=== PATIENT | male | born 1975 | race Caucasian/White ===

== ENCOUNTER 2020-02-18 16:21 | Emergency (ER) | payer SELFPAY ==
[2020-02-18 16:36] VITALS: BP 130/84; PULSE 90; RESP 18; TEMP 37.4; O2SAT 100
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
== END 2020-02-18 17:11 | disposition home or self-care (01) ==
PROVIDERS: Emergency Provider Nurse Practitioner
DX: L30.9 Dermatitis, unspecified (principal); L02.811 Cutaneous abscess of head [any part, except face]; F17.290 Nicotine dependence, other tobacco product, uncomplicated; F41.9 Anxiety disorder, unspecified
CPT/HCPCS: 99213; G0463

== ENCOUNTER 2021-03-19 22:50 | Emergency (ER) | payer BC, SELFPAY ==
--- NOTE | ~2021-03-19 | XR_ITS ---
EXAMINATION: XR wrist LT min 3V DATE: 03/20/2021 00:26 INDICATION: Feels pins sticking out from prior surgery TECHNIQUE: Posteroanterior, ulnar deviation, oblique, and lateral views of the left wrist were obtain ed. COMPARISON: none FINDINGS: Alignment is normal. No acute fracture. Old healed distal left ulnar diaphyseal fracture with interfr agmentary screw and plate and screw fixation. The screws associated with the plate and screw fixation projects slightly beyond the cortical margin of the ulna. The central screw projects up to 5 mm beyo nd the cortical margin and the 3 most distal screws each extend to within 5 mm of the skin surface. J oint spaces are unremarkable. IMPRESSION: 1. Internal fixation along an old healed distal left ulnar diaphyseal fracture which is in near-anato arsen alignment. A few of the screws project beyond the peripheral margin of the ulnar cortex tooth and 5 mm of the skin surface and likely account for the provided indication. Reviewed, dictated and finalized at location [facility] IMPRESSION: 1. Internal fixation along an old healed distal left ulnar diaphyseal fracture which is in near-anatomic alignment. A few of the screws project beyond the per ipheral margin of the ulnar cortex tooth and 5 mm of the skin surface and likel y account for the provided indication.
[2021-03-19 23:09] VITALS: BP 123/77; PULSE 78; RESP 18; TEMP 36.6; O2SAT 97
[2021-03-20] MEDS: HYDROcodone/acetaminophen (*CRX) 5-325 MG TABLET 1 TAB PO (00:15)
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
[2021-03-20 01:36] VITALS: BP 140/74; PULSE 77; RESP 16; O2SAT 99
== END 2021-03-20 01:36 | disposition home or self-care (01) ==
PROVIDERS: Emergency Provider Emergency Medicine
DX: M25.532 Pain in left wrist (principal); F17.290 Nicotine dependence, other tobacco product, uncomplicated
CPT/HCPCS: 73110; 99283; A9270

== ENCOUNTER 2021-09-01 18:44 | Emergency (ER) | payer BC, SELFPAY ==
[2021-09-01] VITALS (8 sets, daily range): BP systolic 119–138; BP diastolic 82–93; PULSE 75–91; RESP 13–22; TEMP 36.4; O2SAT 97–100
--- NOTE | ~2021-09-01 | XR_ITS ---
EXAMINATION: XR chest 2V Exam Date/Time: 09/01/2021 19:00 CDT CLINICAL HISTORY: dyspnea X 4 DAYS Comparison: None available. RESULT: Lines, tubes, and devices: None. Lungs and pleura: Clear. Cardiomediastinal silhouette: Normal cardiomediastinal silhouette. Other: No acute osseous or upper abdominal finding. IMPRESSION: No acute cardiopulmonary process Reviewed, dictated and finalized at location K.
--- NOTE | 2021-09-01 21:28 | ED.URI ---
HPI - URI/Sore Throat General Chief Complaint: Shortness of Breath/Dyspnea Stated Complaint: cant breathe Time Seen by Provider: 09/01/21 21:10 History of Present Illness HPI Narrative: 45-year-old male who is not vaccinated for COVID presents with loss of taste and appetite for the last 3 days, cough, fatigue. Related Data Allergies Allergy/AdvReac Type Severity Reaction Status Date / Time Penicillins Allergy Severe Anaphylaxis Verified 09/01/21 18:56 bee venom protein (honey bee) AdvReac Hives Verified 09/01/21 18:56 [bees] Review of Systems Review of Systems: CONST: Chills HEENT: sore throat C/V: No chest pain RESP: cough GI: Loss of appetite : No dysuria. M/S: Muscle aches. SKIN: No rash. NEURO: Headache PSYCH: [No depression] [facility] Past Medical History Medical History Alcohol abuse Anxiety Critical polytrauma Family History Family History Father Acute quadriplegic myopathy Social History Social History Smoking status: Current some day smoker Tobacco type: cigars Alcohol intake: former Gender identity (if verbalized by the patient): Male Exam Narrative: EXAMINATION OF ORGAN SYSTEMS/BODY AREAS: Constitutional: Vital signs per nursing GENERAL:[No acute distress, non-toxic appearing.] HEAD: Normal with no signs of head trauma. EYES: EOMI, conjunctiva normal ENT: Hearing grossly intact LUNGS: Nonlabored breathing. HEART: [Regular rate and rhythm] ABD: [Soft], [nontender to palpation] EXT: Normal range of motion SKIN: [No rashes or lesions.] NEURO: [Alert and oriented x 3. No gross focal sensory or strength deficits.] PSYCH: Normal affect Course Course Emergency Course: 45-year-old male presenting with COVID symptoms, vital signs stable, exam unremarkable, will swab here and I feel he's stable for discharge home with follow-up as needed, isolation precautions given, return precautions given. Vital Signs Vital signs: Vital Signs Temperature 97.6 F 09/01/21 18:54 Pulse Rate 83 09/01/21 18:54 Respiratory Rate 16 09/01/21 18:54 Blood Pressure 119/82 09/01/21 18:54 Pulse Oximetry 98 09/01/21 18:54 Temperature 97.6 F 09/01/21 18:54 Pulse Rate 79 09/01/21 22:00 Respiratory Rate 14 09/01/21 22:00 Blood Pressure 125/89 09/01/21 22:00 Pulse Oximetry 99 09/01/21 22:00 MDM - URI/Sore Throat Lab Data Labs: Lab Results 09/01/21 Range/Units 21:36 SARS-CoV-2 RNA (RT-PCR) Negative Discharge Plan Discharge Clinical Impression: Upper respiratory infection, Suspected COVID-19 virus infection Patient Disposition: Home, Self-Care Condition: Stable Instructions: Antibiotic Form, Upper Respiratory Infection (ED) Prescriptions: New ondansetron 4 mg tablet,disintegrating 4 mg PO Q6-8H PRN (Reason: nausea and vomiting) Qty: 14 RF: 0 Follow-up/Referrals: Shanna Wheeler [facility] [Primary Care Provider] -
[2021-09-01] MEDS: ONDANSETRON HCL ODT 4 MG TABLET PO (21:35)
[2021-09-01 22:29] LABS: SARS-CoV-2 RNA PCR Negative
== END 2021-09-01 22:02 | disposition home or self-care (01) ==
PROVIDERS: Emergency Provider Emergency Medicine
DX: J06.9 Acute upper respiratory infection, unspecified (principal); Z20.822 Contact with and (suspected) exposure to COVID-19; Z28.310 Unvaccinated for COVID-19; F17.290 Nicotine dependence, other tobacco product, uncomplicated
CPT/HCPCS: 71046; 99283; A9270; C9803; U0003; U0005

== ENCOUNTER 2023-08-02 12:20 | Emergency (ER) | payer BC, SELFPAY ==
[2023-08-02 12:37] VITALS: BP 127/75; PULSE 97; RESP 16; TEMP 37.3; O2SAT 98
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
== END 2023-08-02 13:38 | disposition home or self-care (01) ==
PROVIDERS: Emergency Provider Registered Nurse; PCP Family Medicine
DX: H65.01 Acute serous otitis media, right ear (principal); J02.9 Acute pharyngitis, unspecified; Z20.822 Contact with and (suspected) exposure to COVID-19; F17.290 Nicotine dependence, other tobacco product, uncomplicated
CPT/HCPCS: 87081; 87426; 87804; 87880; 99213; G0463